=== PATIENT | female | born 1985 | race Caucasian/White ===

== ENCOUNTER → 2017-01-18 | Outpatient (CLI) | payer OTHER ==
[~2017-01-18] MED LIST: ZOLOFT
== END | disposition home or self-care (01) ==
LOC: MRI 09:54
DX: S13.4XXA Sprain of ligaments of cervical spine, initial encounter (principal); M25.532 Pain in left wrist; M50.21 Other cervical disc displacement, high cervical region; X58.XXXA Exposure to other specified factors, initial encounter; Y92.89 Other specified places as the place of occurrence of the external cause; Y99.8 Other external cause status; Y93.89 Activity, other specified
CPT/HCPCS: 72141; 73221

== ENCOUNTER → 2017-06-22 | Outpatient (CLI) | payer OTHER ==
[~2017-06-22] MED LIST changes: +IOHEXOL-300 50 ML BOTTLE IV ONE; +LIDOCAINE HCL 1% 20ML VIAL (Pyxis) INJ ONE; +SODIUM BICARBONATE 4% (2.4MEQ) 5ML VIAL IV ONE; +SODIUM CHLORIDE 0.9% 10ML VIAL ONE; +[UNRECOGNIZED DRUG - OTHER] ONE
== END | disposition home or self-care (01) ==
LOC: MRI 08:42
DX: S63.502A Unspecified sprain of left wrist, initial encounter (principal); X58.XXXA Exposure to other specified factors, initial encounter; Y93.89 Activity, other specified; Y92.89 Other specified places as the place of occurrence of the external cause; Y99.8 Other external cause status
CPT/HCPCS: 25246; 73115; 73223; A4216; A9579; J3490; Q9967